=== PATIENT | male | born 1955 | race Caucasian/White ===

== ENCOUNTER 2022-05-23 12:43 | Emergency (ER) | payer MEDICARE, BC, SELFPAY ==
[2022-05-23 12:57] VITALS: BP 149/83; PULSE 75; RESP 18; TEMP 36.8; O2SAT 99
--- NOTE | 2022-05-23 12:58 | ED.GENADUL_ITS ---
Discharge Plan Disposition Patient Disposition: HOME Discharge Details Clinical Impression: Laceration of scalp Primary Care Provider: Unknown,Unknown ED Provider: Howard Parker Home Meds and New Rx's Prescriptions: No Action No Known Home Meds Discharge Instructions Additional Instructions: Suture removal in 7 days. Please apply some bacitracin to the suture line for few days and then keep dry. You are going back to work in a [place]ber area please keep wound covered. You may shower. You will need to have covered the wound for the next 6 months. If you get a sunburn on the laceration site the scarring will be worse. Discharge Data Discharge Date/Time-TO BE ENTERED AT DEPARTURE: 05/23/22 14:00 Medical Decision Making Patient with isolated injury to the forehead/scalp. Laceration was closed with Prolene 5 oh. Please see procedure note. Patient up-to-date with tetanus. No signs of concussion. No indication for CAT scan at this time. HPI General Date/Time Provider Initiated Documentation: 05/23/22 12:58 . HPI Narrative: 67-year-old gentleman presented to the emergency room with forehead/top of the head laceration. He sustained a V-shaped laceration when a forgiving pneumatic hammer fell and braced his head. No loss of consciousness. No headache. Isolated to the increase that occurred approximately 45 minutes prior to arrival to the emergency department. Bleeding controlled with pressure. Again no headaches no nausea no vomiting. No visual changes. Patient recollects all of the events. Patient is up-to-date with tetanus. He does not take any medication does not take any blood thinners. Pain is mild. No neck pain. Related Data Home Medications Medication Instructions Recorded Confirmed Unknown [No Known Home Meds] 05/23/22 05/23/22 Allergies Allergy/AdvReac Type Severity Reaction Status Date / Time No Known Allergies Allergy Unverified 05/23/22 13:05 Review of Systems Narrative: Constitutional negative. HEENT no visual disturbances Cardiovascular no palpitation Respiratory negative GI no nausea no vomiting MSK no myalgias no arthralgias Skin see HPI Neuro see HPI Hematological not on blood thinners Psych negative PFSH All Active Problems (Updated 05/23/22 @ 13:41 by Howard Parker MD) Laceration of scalp (Acute) Social History Smoking/Tobacco Use Status: Never Smoking risk assessment performed?: Yes Alcohol Intake: current Alcohol Intake frequency: holidays/special occasions only Alcohol type: beer Substance use type: does not use Do you feel safe at home: Yes Do you feel safe in your relationship?: Yes Exam Narrative Exam Narrative: Awake alert Drake x3 calm no acute distress Normocephalic. He does have a V-shaped laceration of the margin of the forehead/hairline on the right. The laceration measures approximately 6 cm. Superficial. No foreign bodies identified. PERRLA EOMI MMM anicteric Normal work of breathing Cardiovascular normal cap refill normal peripheral pulses MSK moving all extremities. Normal gait Neuro grossly intact Skin see above Procedures Laceration Laceration 1: Site: scalp Side (If applicable): right Description: other (V shaped) Depth: simple, single layer Local Anesthetic: Lidocaine 2% and with Epi Amount of anesthesia used (mL): 6 Skin layer closed with: other (prolene) Size (cm): 5-0 Number of sutures: 12 Technique: simple, interrupted
--- NOTE | 2022-05-23 13:58 | NUR.NOTE ---
Nursing Note: Bacitracin applied to wound, covered w/telfa & tape d/t pt returning to work after discharge.
== END 2022-05-23 14:00 | disposition home or self-care (01) ==
PROVIDERS: Emergency Provider Emergency Medicine
DX: S01.01XA Laceration without foreign body of scalp, initial encounter (principal); W20.8XXA Other cause of strike by thrown, projected or falling object, initial encounter
CPT/HCPCS: 12001; 99281; 99282

== ENCOUNTER 2022-05-28 19:02 | Emergency (ER) | payer MEDICARE, BC, SELFPAY ==
[2022-05-28 19:08] VITALS: BP 150/83; PULSE 83; RESP 14; TEMP 36.6; O2SAT 98
--- NOTE | 2022-05-28 19:24 | W.ED.GENAD ---
Discharge Plan Disposition Patient Disposition: HOME Condition: Improving Discharge Details Clinical Impression: Encounter for removal of sutures Primary Care Provider: Unknown,Unknown ED Provider: Javy Barreto Home Meds and New Rx's Prescriptions: No Action No Known Home Meds Discharge Instructions Instructions: Stitches Removal (ED) Additional Instructions: Sutures removed without difficulty. Keep the area clean and dry, avoid direct sunlight, and you still may wear an antibiotic ointment dressing for the next few days. Watch for new or worsening symptoms and return to the ER for any concerns Medical Decision Making This is a 67-year-old gentleman presenting for suture removal, sutures placed 5 days. Laceration appears well approximated, no signs of infection. 12 sutures removed without difficulty. Patient tolerated well. Standard discharge and return precautions were provided. Patient understands, is agreeable to this plan, and has no additional questions or concerns upon discharge. This documentation was generated using [employer] system, please disregard any oddities of phrase or misspellings. Medical Records Medical records reviewed: Yes I reviewed the patient's medical records. HPI General Mode of arrival: ambulatory. Date/Time Provider Initiated Documentation: 05/28/22 19:04. Limitations to Documentation: no limitations. Information obtained by: patient. HPI Narrative: 67-year-old gentleman presents for suture removal. Sutures were placed 5 days ago, he has no acute concerns or complaints. Reports mild discomfort in the area but denies any numbness, tingling, weakness, drainage, signs of infection. Related Data Home Medications Medication Instructions Recorded Confirmed Unknown [No Known Home Meds] 05/23/22 05/28/22 Allergies Allergy/AdvReac Type Severity Reaction Status Date / Time No Known Allergies Allergy Unverified 05/28/22 19:10 General Stated Complaint: SutureRem SANDRA: 4 Review of Systems Constitutional Constitutional: Denies fever(s) and Denies headache(s) ENT Ears, Nose, Mouth, and Throat: Denies headache(s) Integumentary/Breasts Skin/Breast: Denies erythema Neurologic Neurologic: Denies headache(s) PFSH All Active Problems Laceration of scalp (Acute) Encounter for removal of sutures (Acute) Social History Smoking/Tobacco Use Status: Never Smoking risk assessment performed?: Yes Alcohol Intake: current Alcohol Intake frequency: holidays/special occasions only Alcohol type: beer and hard liquor Drug use: Never Substance use type: does not use Do you feel safe at home: Yes Do you feel safe in your relationship?: Yes Exam Const General: cooperative, healthy appearing, comfortable and no acute distress Orientation: alert, awake and oriented x3 [facility] Head: normocephalic Head images: 1. There is a well approximated laceration with 12 sutures intact. There is no erythema, warmth, swelling, drainage, signs of secondary infection. Eyes General: appearance normal, both eyes and all related structures Conjunctivae: conjunctivae normal Neck Neck: normal visual inspection, trachea midline and supple Resp Effort & Inspection: normal respiratory effort and able to speak in complete sentences Skin General skin exam: no rashes or lesions noted Neuro General: patient alert, patient awake, patient oriented x3, moves all extremities and no focal motor deficits Cognition: normal cognition Speech: speech normal Gait: normal gait Sensory Exam: no sensory deficits noted Psych Appearance: grossly normal Mental Status: mental status grossly normal Course Vital Signs Vital signs: Vital Signs Temperature 36.6 C 05/28/22 19:08 Pulse 83 05/28/22 19:08 Respiratory Rate 14 05/28/22 19:08 Blood Pressure 150/83 H 05/28/22 19:08 Pulse Oximetry 98 05/28/22 19:08 Temperature 36.6 C 05/28/22 19:08 Temperature Source Skin 05/28/22 19:08 Pulse 83 05/28/22 19:08 Respiratory Rate 14 05/28/22 19:08 Respiratory Effort Non-Labored 05/28/22 19:10 Blood Pressure 150/83 H 05/28/22 19:08 Blood Pressure Position Sitting 05/28/22 19:08 Pulse Oximetry 98 05/28/22 19:08 Oxygen Delivery Method Room Air 05/28/22 19:08 Oxygen Flow Rate 0 05/28/22 19:08 Pain Level 0 05/28/22 19:08 PAWSS Have you Been Recently Intoxicated or Drunk Within the Last 30 days?: No Have you Ever Experienced Previous Episodes of Alcohol Withdrawal?: No Have you ever Experienced Withdrawal Seizures?: No Have you ever Experienced Delirium Tremens(DT)s?: No Have you ever undergone Alcohol Rehabilitation Treatment (i.e, inpt ot outpatient treatment programs)?: No Have you ever Experienced Blackouts?: No Have you ever Combined Alcohol with other Downers within the last 90 days?: No Have you ever Combined Alcohol with any other Substance of Abuse during the last 90 days?: No Positive Blood Alcohol level on Presentation? [PCS.BAL]: No Evidence of Increased Autonomic Activity (i.e. HR>120, tremor, sweating, agitation, nausea)?: No Result: 0
[2022-05-28 19:30] VITALS: BP 150/83; PULSE 83; RESP 14; TEMP 36.6; O2SAT 98
== END 2022-05-28 19:33 | disposition home or self-care (01) ==
PROVIDERS: Emergency Provider Physician Assistant
DX: S01.01XD Laceration without foreign body of scalp, subsequent encounter (principal); Z48.02 Encounter for removal of sutures; X58.XXXD Exposure to other specified factors, subsequent encounter
CPT/HCPCS: 99281